=== PATIENT | female | born 1950 | race Caucasian/White ===

== ENCOUNTER 2021-09-12 14:42 | Emergency (ER) | payer MEDICARE, SELFPAY ==
[2021-09-12 15:03] VITALS: BP 120/83; PULSE 64; RESP 14; TEMP 36.6; O2SAT 98
[2021-09-12 15:48] VITALS: BP 117/74; PULSE 62; TEMP 36.6; O2SAT 98
--- NOTE | 2021-09-12 16:00 | DI.US_ITS ---
Exam(s) US LOWER EXTREMITY VENOUS LT EXAM: US LOWER EXTREMITY VENOUS LT CLINICAL HISTORY: pain groin. TECHNIQUE: Ultrasound performed using standard protocol. COMPARISON: No exams were available for comparison FINDINGS: Duplex venous ultrasound was performed according to the usual protocol. The deep veins are freely com pressible throughout and there is normal flow augmentation with manual calf compression. 2D and Doppl er evaluation are unremarkable. IMPRESSION: No evidence of deep venous thrombosis of the left lower extremity. DATA REPOSITORY:
--- NOTE | 2021-09-12 16:32 | ED.GENADUL_ITS ---
Discharge Plan Disposition Patient Disposition: HOME Condition: Stable Discharge Details Clinical Impression: Left inguinal pain Primary Care Provider: Catrina Almodovar ED Provider: Prem Watson Home Meds and New Rx's Prescriptions: Continued calcium carbonate-vitamin D3 600 mg-10 mcg (400 unit) capsule 3 cap PO Rx Instructions: 1200 units once daily. loratadine [Claritin] 10 mg tablet 10 mg PO DAILY warfarin 7.5 mg tablet 7.5 mg PO .6d/week MDD 7.5mg Qty: 90 3RF Protocol: Dose Management Condition: Sunday Dose/Route: 7.5 mg Instruction: 1 x 7.5 mg tablet Condition: Sunday Dose/Route: 7.5 mg Instruction: 1 x 7.5 mg tablet Condition: Sunday Dose/Route: 7.5 mg Instruction: 1 x 7.5 mg tablet Condition: Sunday Dose/Route: 7.5 mg Instruction: 1 x 7.5 mg tablet Condition: Dose/Route: 10 mg Instruction: 2 x 5 mg tablets Condition: Sunday Dose/Route: 7.5 mg Instruction: 1 x 7.5 mg tablet Condition: Sunday Dose/Route: 7.5 mg Instruction: 1 x 7.5 mg tablet Protocol Text: Adjustment Start Date: Sunday09/05/21 INR Value: 2.0 INR Date: 09/05/21 Recheck Date: 10/03/21 Additional Instructions: Pt notified. zn Rx Instructions: Or as directed opium tincture 10 mg/mL (morphine) tincture 1 ml PO DAILY MDD 1mL Qty: 30 0RF Rx Instructions: Chronic diarrhea metoprolol succinate 25 mg tablet extended release 24 hr 25 mg PO DAILY Qty: 90 3RF metoprolol succinate 100 mg tablet extended release 24 hr 100 mg PO DAILY Qty: 90 3RF Rx Instructions: To add to 25mg for TDD 125mg daily warfarin 5 mg tablet 10 mg PO .1d/week MDD 5mg daily Protocol: Dose Management Condition: Sunday Dose/Route: 7.5 mg Instruction: 1 x 7.5 mg tablet Condition: Sunday Dose/Route: 7.5 mg Instruction: 1 x 7.5 mg tablet Condition: Sunday Dose/Route: 7.5 mg Instruction: 1 x 7.5 mg tablet Condition: Sunday Dose/Route: 7.5 mg Instruction: 1 x 7.5 mg tablet Condition: Dose/Route: 10 mg Instruction: 2 x 5 mg tablets Condition: Sunday Dose/Route: 7.5 mg Instruction: 1 x 7.5 mg tablet Condition: Sunday Dose/Route: 7.5 mg Instruction: 1 x 7.5 mg tablet Protocol Text: Adjustment Start Date: Sunday09/05/21 INR Value: 2.0 INR Date: 09/05/21 Recheck Date: 10/03/21 Additional Instructions: Pt notified. zn Label Comments: sun/sun Rx Instructions: Or as directed Discharge Instructions Additional Instructions: Please follow-up with your primary care physician. Avoid activities that worsen pain. No heavy lifting or bending and twisting. Return to the emergency department immediately for any worsening or new concerning symptoms. Referrals: Catrina Almodovar NP [Primary Care Provider] - Discharge Data Discharge Date/Time-TO BE ENTERED AT DEPARTURE: 09/12/21 16:41 Medical Decision Making 31-year-old female with history of DVT, on Coumadin, here with left groin pain that started earlier today. Patient is focally tender in her inguinal area with no palpable mass. I am concerned about small inguinal hernia versus less likely DVT versus musculoskeletal etiology. Ultrasound of left lower extremity was negative for DVT. Patient would like to pursue additional diagnostics in the outpatient setting w ith primary care physician. She has no signs of incarcerated hernia and in fact pain is resolved. Disposition decision was made weighing the risks and benefits of hospitalization versus outpatient treatment, the risk for further decompensation, and the patient's wishes. The patient was stable and requested discharge. Prior to discharge, my usual and customary return precautions were reviewed with the patient - this included follow-up instructions and reason to return to the emergency department if condition worsens, does not improve as expected, or other new concerns arise. HPI General Mode of arrival: ambulatory . Date/Time Provider Initiated Documentation: 09/12/21 15:23 . Limitations to Documentation: no limitations . Information obtained by: patient . HPI Narrative: 31-year-old female with history of DVT, on Coumadin, here with left groin pain that started earlier today. Pain has been intermittent since onset. Worse with certain positions including bending over. Pain is been moderate intensity. No associated nausea or vomiting. Patient does have history of pulmonary embolism in the past remotely. She is anticoagulated. She is concerned that she could have a DVT. Related Data Home Medications Medication Instructions Recorded Confirmed loratadine 10 mg tablet (Claritin) 10 mg PO DAILY 11/18/20 09/12/21 calcium carbonate 600 mg-vitamin 3 cap PO 03/23/21 03/23/21 D3 10 mcg (400 unit) capsule warfarin 7.5 mg tablet 7.5 mg PO .6d/week #90 tabs 03/30/21 09/12/21 opium tincture 10 mg/mL (morphine) 1 ml PO DAILY diarrhea #30 mL 07/13/21 09/12/21 oral metoprolol succinate 100 mg 100 mg PO DAILY #90 tabs 08/08/21 09/12/21 tablet,extended release 24 hr metoprolol succinate 25 mg 25 mg PO DAILY #90 tabs 08/08/21 09/12/21 tablet,extended release 24 hr warfarin 5 mg tablet 10 mg PO .1d/week 09/12/21 09/12/21 Previous Rx's Medication Instructions Recorded warfarin 7.5 mg tablet 7.5 mg PO .6d/week #90 tabs 03/30/21 opium tincture 10 mg/mL (morphine) 1 ml PO DAILY diarrhea #30 mL 07/13/21 oral metoprolol succinate 100 mg 100 mg PO DAILY #90 tabs 08/08/21 tablet,extended release 24 hr metoprolol succinate 25 mg 25 mg PO DAILY #90 tabs 08/08/21 tablet,extended release 24 hr Allergies Allergy/AdvReac Type Severity Reaction Status Date / Time 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 Cardiac arrest (~2012) Headache (~2019) 1-2 times per year; [facility] [place] consult, resolved 2020 Heparin allergy Ischemic bowel disease (~2012) S/P ileostomy Seasonal allergies Shoulder pain (~2012) Surgical History H/O shoulder surgery (10/21/12) [facility]- Dr. Betancourt H/O vascular surgery mesh in vena cava History of arthroscopy of left shoulder History of excision of pilonidal cyst History of hemicolectomy (~2012) [facility] [place]. Willard History of reversal of ileostomy (~2013) Hx of breast biopsy (2011) Hx of cholecystectomy (~2004) [facility] Hx of colectomy (2003) Hx of colonoscopy Family History Father Cancer prostate Mother Diabetes Brother SVT (supraventricular tachycardia) Maternal Grandfather Cancer stomach Maternal Grandmother Cancer lung Social History Smoking/Tobacco Use Status: Former Tobacco Use Quit Date: 02/08/97 Tobacco: How many years used: 30 Quit status: quit date established (02/08/1997) Smoking risk assessment performed?: Yes Alcohol Intake: current Alcohol Intake frequency: a few times a month Drug use: Never Substance use type: does not use Adopted: No Caregiver/Support person: No Foster care: No Household members: spouse and other Details: 87 yr old mother lives across driveway Housing: house Number of Children: 0 number of grandchildren: 0 Communication Needs: Hard of Hearing and Corrective Lenses Education Level: college Details: Associate's Degree Do you need help understanding health information?: Never current occupation: Retired pharmacy general manager Pets and animals: Yes (6) Pets and animals: dog(s) Sexually active: No Do you think of yourself as: straight/heterosexual Current gender identity: female What is your relationship status?: How often do you talk on the phone with friends or family?: three or more times per week How often do you get together with friends or relatives?: three or more times per week Do you belong to any clubs or organized social groups?: yes Panel score (0-1 are the most socially isolated patients): 3 What type of physical activity do you participate in: aerobic Duration: 15-30 minutes/day Frequency: daily Irina/Confucianism: Uatsdin Special irina needs: No Seatbelt use: always Drive intox or ride w/intox parts driver: No Do you feel safe at home: Yes Do you feel safe in your relationship?: Yes Exam Const General: cooperative and no acute distress HENMT Mouth: moist mucous membranes Eyes Conjunctivae: normal conjunctivae Neck Neck: trachea midline Resp Auscultation: clear to auscultation bilaterally, no rales, no rhonchi and no wheezes Cardio Rate: regular rate and not tachycardic Rhythm: regular rhythm GI Palpation: soft, not firm, no guarding, no masses and not rigid Auscultation: normal bowel sounds Other: Mild focal tenderness left groin, no mass with bearing down Skin General skin exam: no rashes or lesions noted Neuro General: patient alert, patient awake, patient oriented x3 and tone normal Extrem General: no calf tenderness and no edema Psych Appearance: grossly normal Mental Status: mental status grossly normal Course Vital Signs Vital signs: Vital Signs Temperature 36.6 C 09/12/21 15:03 Pulse 64 09/12/21 15:03 Respiratory Rate 14 09/12/21 15:03 Blood Pressure 120/83 09/12/21 15:03 Pulse Oximetry 98 09/12/21 15:03 Temperature 36.6 C 09/12/21 15:48 Temperature Source Oral 09/12/21 15:48 Pulse 62 09/12/21 15:48 Respiratory Rate 14 09/12/21 15:03 Respiratory Effort Non-Labored 09/12/21 14:56 Respiratory Depth Normal 09/12/21 14:56 Respiratory Pattern Normal 09/12/21 14:56 Blood Pressure 117/74 09/12/21 15:48 Pulse Oximetry 98 09/12/21 15:48 Oxygen Delivery Method Room Air 09/12/21 15:48 Oxygen Flow Rate 0 09/12/21 15:48 PAWSS Have you Been Recently Intoxicated or Drunk Within the Last 30 days?: No Have you Ever Experienced Previous Episodes of Alcohol Withdrawal?: No Have you ever Experienced Withdrawal Seizures?: No Have you ever Experienced Delirium Tremens(DT)s?: No Have you ever undergone Alcohol Rehabilitation Treatment (i.e, inpt ot outpatient treatment programs)?: No Have you ever Experienced Blackouts?: No Have you ever Combined Alcohol with other Downers within the last 90 days?: No Have you ever Combined Alcohol with any other Substance of Abuse during the last 90 days?: No Positive Blood Alcohol level on Presentation? [PCS.BAL]: No Evidence of Increased Autonomic Activity (i.e. HR>120, tremor, sweating, agitation, nausea)?: No Result: 0
== END 2021-09-12 16:41 | disposition home or self-care (01) ==
PROVIDERS: Emergency Provider Student in an Organized Health Care Education/Training Program; PCP Nurse Practitioner Adult Health
DX: R10.32 Left lower quadrant pain (principal)
CPT/HCPCS: 99284; 93971; 99283

== ENCOUNTER 2021-11-07 02:48 | Outpatient (CLI) | payer MEDICARE, SELFPAY ==
[2021-11-07 08:15] LABS: ALT 23 U/L (14-59); AST 22 U/L (15-37); Albumin 3.9 g/dL (3.4-5.0); Alkaline Phosphatase 49 U/L (46-116); Anion Gap 9.1 mmol/L (3-11); BUN 29 mg/dL (7-18); Bilirubin, Total 0.8 mg/dL (0.2-1.0); CO2 27.9 mmol/L (21.0-32.0); CREATININE 1.5 mg/dL (0.55-1.02); Calcium 9.1 mg/dL (8.5-10.1); Calculated LDL 71 mg/dL (<100); Chloride 103 mmol/L (98-107); Cholesterol 147 mg/dL (<200); Estimated GFR 37.03 (mL/min/1.73m2); Glucose 92 mg/dL (74-106); HDL Cholesterol 62 mg/dL (40-60); Potassium 4.3 mmol/L (3.5-5.1); Sodium 140 mmol/L (136-145); TSH (W/Ref FT4) 2.81 uIU/mL (0.36-3.74); Total Protein 7.3 g/dL (6.4-8.2); Triglyceride 71 mg/dL (<150)
== END 2021-11-07 02:49 | disposition home or self-care (01) ==
LOC: LBO 02:48
PROVIDERS: PCP Nurse Practitioner Adult Health; Visit Provider Nurse Practitioner Adult Health
DX: I47.1 Supraventricular tachycardia (principal); K52.9 Noninfective gastroenteritis and colitis, unspecified; R79.89 Other specified abnormal findings of blood chemistry; N18.4 Chronic kidney disease, stage 4 (severe); R51.9 Headache, unspecified; Z79.899 Other long term (current) drug therapy; R53.83 Other fatigue
CPT/HCPCS: 36415; 80053; 80061; 84443

== ENCOUNTER 2021-12-30 11:48 | Outpatient (CLI) | payer MEDICARE, SELFPAY ==
--- NOTE | 2021-12-30 11:45 | RT.EKG_ITS ---
APPROVED REPORT Exam: Resting ECG Reason for Exam: palpitations Patient Location: O HR:64 bpm ECG Measurements Heart Rate 64 AXIS NE 157 P 55 QRSd 95 QRS -40 QT 416 T 48 QTc 430 Conclusion Sinus rhythm...normal P axis, V-rate 50- 99 Left anterior fascicular block...axis(240,-40), init forces inf Atrial premature beat
== END 2021-12-30 11:49 | disposition home or self-care (01) ==
LOC: DI.KIM 11:49
PROVIDERS: PCP Nurse Practitioner Adult Health; Visit Provider Nurse Practitioner Adult Health
DX: R00.2 Palpitations (principal); R94.31 Abnormal electrocardiogram [ECG] [EKG]; I44.4 Left anterior fascicular block; I49.1 Atrial premature depolarization
CPT/HCPCS: 93010

== ENCOUNTER 2021-12-30 13:26 | Outpatient (RCR) | payer MEDICARE, SELFPAY ==
--- NOTE | 2021-12-30 13:15 | HOLTER_ITS ---
APPROVED REPORT Conclusion This is a 48-hour Holter monitor reportedly ordered for SVT and palpitations Rhythm throughout was sinus with an average heart rate of 70. Minimum was 57, maximum 105 There were rare ventricular ectopic beats There were occasional atrial premature beats There was no atrial fibrillation, no supraventricular tachycardia, no high-grade AV block, no pauses greater than 3 seconds
== END 2022-01-11 23:59 | disposition home or self-care (01) ==
LOC: CARDOPNVT 13:26
PROVIDERS: PCP Nurse Practitioner Adult Health; Visit Provider Nurse Practitioner Adult Health
DX: R00.2 Palpitations (principal)
CPT/HCPCS: 93227; 93225; 93226

== ENCOUNTER 2022-01-12 14:09 | Outpatient (RCR) | payer MEDICARE, SELFPAY | END 2022-02-11 23:59 | disposition home or self-care (01) | LOC: CARDOPNVT 14:09 | PROVIDERS: PCP Nurse Practitioner Adult Health; Visit Provider Nurse Practitioner Adult Health | CPT/HCPCS: 93226 ==

== ENCOUNTER → 2022-04-18 13:20 | Outpatient (BNVA) | payer MEDICARE, SELFPAY | PROVIDERS: PCP Nurse Practitioner Adult Health; Referring Provider Nurse Practitioner Adult Health; Visit Provider Surgery | DX: D22.22 Melanocytic nevi of left ear and external auricular canal (principal); L85.8 Other specified epidermal thickening | CPT/HCPCS: 11440; 99242 ==

== ENCOUNTER 2022-04-18 14:22 | Outpatient (REF) | payer MEDICARE, SELFPAY ==
--- NOTE | 2022-04-18 14:20 | SKI_PTH ---
PATIENT: Renae Gibson LOC: [facility] U#:[id number] AGE/SX: 72/F ROOM: RE04/18/[address]: Mari Ornelas : 1950 BED: DIS: 04/18/2022 SPEC #: [id number] RECD: 04/18/22 17:01 STATUS: JEREMY RERoman #: [id number] BHARAT: 04/18/22 14:[address]: Mari Ornelas DEPT: Surgical Specimen RECD BY: Nena Galeas ENTERED: 04/18/22 17:01 SP TYPE: QUINTON MERIDA DR: Catrina Almodovar APRN Tissues: 1 - SKIN BIOPSY(SHAVE/PUNCH) Procedures: SKIN LEVEL 4 Comments: [id number]
== END 2022-04-18 14:23 | disposition home or self-care (01) ==
LOC: LBN 14:22
PROVIDERS: PCP Nurse Practitioner Adult Health; Visit Provider Surgery
DX: L98.8 Other specified disorders of the skin and subcutaneous tissue (principal)
CPT/HCPCS: 88305

== ENCOUNTER 2022-04-19 01:38 | Outpatient (CLI) | payer MEDICARE, SELFPAY ==
--- NOTE | 2022-04-19 06:30 | DI.MAMMO_ITS ---
Exam(s) MAMMO SCREENING EXAM: MAMMO SCREENING CLINICAL HISTORY: screening,z12.39 TECHNIQUE: Mammograms were interpreted according to the usual protocol including computer analysis w [employer] CAD system, tomosynthesis and C-view imaging. COMPARISON: 2013 through 2021 FINDINGS: The breasts are composed of heterogeneously dense fibroglandular densities, Breast Density category C . No suspicious masses or suspicious microcalcifications are seen. No skin thickening or abnormal axillary lymph nodes are seen. There has been no significant change from prior exams. IMPRESSION: BI-RADS Category 1, Negative mammogram. Yearly screening mammography is recommended. Breast Density Category C, heterogeneously Dense. The mammogram demonstrates the patient's breast tissue is dense. Dense breast tissue is very common a nd is not abnormal but dense breast tissue can make it harder to find cancer on a mammogram. Also, de nse breast tissue may increase breast cancer risk. This information about the result of the mammogram report was provided to the patient to raise their awareness. Use this report when you speak with the patient about their risks for breast cancer, which includes their family history. At that time, you may recommend additional screening tests (Ultrasound or MRI) as they might be useful based on their r isk. A negative radiographic report should not delay biopsy if a dominant or clinically suspicious mass is present. Up to ten percent of cancers are not identified on mammography. A negative report may reinforce clinical impression. Adenosis and dense breasts may obscure an underlying neoplasm. False positive reports average 6 to 10%.
== END 2022-04-19 01:58 ==
LOC: DI 01:39
PROVIDERS: PCP Nurse Practitioner Adult Health; Visit Provider Nurse Practitioner Adult Health
DX: Z12.31 Encounter for screening mammogram for malignant neoplasm of breast (principal)
CPT/HCPCS: 77063; 77067

== ENCOUNTER → 2022-04-25 11:37 | Outpatient (BNVA) | payer MEDICARE, SELFPAY | PROVIDERS: PCP Nurse Practitioner Adult Health; Referring Provider Nurse Practitioner Adult Health; Visit Provider Surgery | DX: Z48.817 Encounter for surgical aftercare following surgery on the skin and subcutaneous tissue (principal); L85.8 Other specified epidermal thickening ==

== ENCOUNTER 2022-11-10 03:29 | Outpatient (CLI) | payer MEDICARE, SELFPAY ==
[2022-11-10 14:09] LABS: BUN 25 mg/dL (7-18); CREATININE 1.5 mg/dL (0.55-1.02); Calcium 9.3 mg/dL (8.5-10.1); Chloride 103 mmol/L (98-107); Glucose 115 mg/dL (74-106); Potassium 3.7 mmol/L (3.5-5.1); Sodium 139 mmol/L (136-145)
== END 2022-11-10 03:30 | disposition home or self-care (01) ==
LOC: LBO 03:29
PROVIDERS: Absent Provider Nurse Practitioner Adult Health; PCP Nurse Practitioner Adult Health; Visit Provider Nurse Practitioner Adult Health
DX: R73.09 Other abnormal glucose (principal); R79.89 Other specified abnormal findings of blood chemistry
CPT/HCPCS: 36415; 80048

== ENCOUNTER → 2023-04-23 00:33 | Outpatient (CLI) | payer MEDICARE, SELFPAY ==
--- NOTE | 2023-04-23 08:28 | DI.MAMMO_ITS ---
Exam(s) MAMMO SCREENING EXAM: MAMMO SCREENING CLINICAL HISTORY: screening,Z12.39 TECHNIQUE: Bilateral full field digital CC and MLO mammographic images were obtained with 3D tomosyn thesis and utilizing computer aided detection (CAD). COMPARISON: Available for comparison. FINDINGS: Masses/Architectural Distortion: There is a stable ovoid nodule in the outer right breast on the cran iocaudad view. No new nodules are seen. No areas of architectural distortion are present. Microcalcifications: No suspicious pleomorphic-type are seen. Skin Thickening/Nipple Retraction: None. IMPRESSION: 1. No significant interval change with no specific features of malignancy noted. 2. Unless there is more urgent need, screening mammography is recommended, as per [place] [employer] guidelines. BI-RADS Category 2 - Benign Findings Breast Density - Category C - Heterogeneously dense Breast density category C or D implies that the patient has dense breast tissue. Dense breast tissue is very common and is not abnormal but dense breast tissue can make it harder to find cancer on a ma mmogram. Also, dense breast tissue may increase their breast cancer risk. This information about the result of the mammogram report was provided to the patient to raise their awareness. Use this report when you speak with the patient about their risks for breast cancer, which includes their family hist ory. At that time, you may recommend for more screening tests (Ultrasound or MRI) as they might be us eful based on their risk. A negative radiographic report should not delay biopsy if a dominant or clinically suspicious mass is present. Up to ten percent of cancers are not identified on mammography. A negative report may reinforce clinical impression. Adenosis and dense breasts may obscure an underlying neoplasm. False positive reports average 6 to 10%. Patient will receive a letter notifying them of these results.
== END ==
PROVIDERS: PCP Nurse Practitioner Adult Health; Visit Provider Nurse Practitioner Adult Health
DX: Z12.31 Encounter for screening mammogram for malignant neoplasm of breast (principal)
CPT/HCPCS: 77063; 77067

== ENCOUNTER → 2023-05-02 01:10 | Outpatient (CLI) | payer MEDICARE, SELFPAY ==
--- NOTE | 2023-05-02 07:30 | DI.US_ITS ---
APPROVED REPORT EXAM: Comprehensive 2D, Doppler, and color-flow Echocardiogram Patient Location: Out-Patient Material Control Specialist: Fanta Davila RDCS (AE) Indications: Assess valves, h/o valvular regurgitation, SVT Other Information Study Quality: Good Conclusion Normal left ventricular wall thickness, chamber size and systolic function. EF is 55 to 60%. Wall m otion is normal Normal right ventricular size and function Both atria are normal in size There is no structural or hemodynamically significant valvular disease Estimated right ventricular systolic pressure is 20 mmHg Wall motion Left Ventricle The left ventricle is normal size. The left ventricular systolic function is normal. The left ventric ular ejection fraction is within the normal range. There is normal left ventricular wall thickness. T here is normal LV segmental wall motion. There is no ventricular septal defect visualized. LVEF is 55 %. Right Ventricle The right ventricle is normal size. The right ventricular systolic function is normal. Atria The left atrium size is normal. The right atrium size is normal. The interatrial septum is intact wit h no evidence for an atrial septal defect. Aortic Valve The aortic valve is normal in structure. Aortic valve is probably trileaflet. There is no aortic valv ular stenosis. No aortic regurgitation is present. Mitral Valve The mitral valve is normal in structure. No evidence of mitral valve stenosis. Trace mitral regurgita tion. Tricuspid Valve The tricuspid valve is normal in structure. There is no tricuspid valve stenosis. Trace to mild tricu spid regurgitation. The RVSP is 19.9 mmHg. Pulmonic Valve The pulmonary valve is normal in structure. There is no pulmonic valvular stenosis. There is no pulmo snow valvular regurgitation. Great Vessels The aortic root is normal in size. The ascending aorta is normal in size. Aortic arch is normal in ca liber. IVC is normal in size and collapses >50% with inspiration. Pericardium There is no pericardial effusion. 2D Dimensions IVSD d PLAX 0.89 cm F: 0.6-1.0 Ao Root d 3.33 cm F: 2.7 - 3.3 LVPW d PLAX 0.94 cm F: 0.6 - 1.0 Ao Asc Diam d 3.08 cm F: 2.3 - 3.1 LVID d PLAX 4.49 cm F: 3.8 - 5.2 LVDs 3.14 cm F: 2.2 - 3.5 LV EF Teichholz 57.4 % FS 30.06 % LV EDV (Teich) 92.0 mL LV ESV (Teich) 39.1 mL M-Mode TAPSE 2.08 cm (M/F) >1.7 Auto EF LV EDV A4C 63.0 mL LV EDV A2C 77.7 mL LV EDV BP 70.5 mL LV ESV A4C 28.6 mL LV ESV A2C 34.4 mL LV ESV BP 31.5 mL LVEF(%) A4C 54.7 % LVEF(%) A2C 55.7 % LVEF(%) BP 55.2 % LV SV A4C 34.5 ml LV SV A2C 43.3 ml LV SV BP 38.9 ml LV CO A4C 2.4 L/min LV CO A2C 3.2 L/min LV CO BP 2.8 L/min HR A4C 68.31 BPM HR A2C 73.62 BPM LV EDV Index (BP) LA Volume LA Length A4C 4.1 cm LA Length A2C 4.7 cm LA Area A4C s 11.67 cm2 LA Area A2C s 14.52 cm2 LA Vol A4C A-L 28.51 mL LA Vol A2C A-L 38.33 mL LA Vol Biplane A-L 35.5 mL LA Vol/BSA A4C A-L LA Vol/BSA A2C A-L LA Vol/BSA BP A-L 20.7 mL/m2 LA Vol A4C MOD 26.4 mL LA Vol A2C MOD 34.6 mL LA Vol BP MOD 32.2 mL RA Volume RA Area A4C 8.0 cm2 RA ESV A4C (A-L) 15.4mL RA Vol/BSA A4C A-L RA Length A4C 3.5 cm RA ESV A4C (MOD) 14.6mL LV Diastology MV E' medial 0.054 (>0.07 m/s) MV E Vmax 0.46 (0.4-1.3 m/s) MV E/E' MED 8.40 (<14) MV A Vmax 0.85 (0.4-1.3 m/s) MV E' lateral 0.051 (>0.1 m/s) E/A Ratio 0.5 MV E/E' LAT 8.99 (<14) MV E' Average 0.053 m/s MV E/E'(average) 8.69 Aortic Valve AoV Vmax 0.99 m/s LVOT Vmax 0.98 m/s AoV Peak Grad 3.9 mmHg LVOT Peak Grad 3.9 mmHg AoV Area (Vmax) 2.80 cm2 LVOT VTI 0.172 m AoV VTI 0.194 m LVOT Mean Grad 1.8 mmHg AoV Mean Conrad. 0.71 m/s LVOT SV 48.51 mL AoV Mean Grad 2.3 mmHg LVOT Diam s 1.85 cm AoV Area (VTI) 2.50 cm2 Velocity Ratio 0.99 Mitral Valve MV DT 213 (160-240 msec) Pulmonary Valve PV Vmax 0.68 (0.5-1.5 m/s) RVOT Vmax 0.56 m/s PV Peak Grad 1.9 mmHg RVOT Peak Gr. 1.3 mmHg PV Mean Conrad 0.46 m/s RVOT VTI 0.124 m PV Mean Grad 1.0 mmHg RVOT Mean Gr. 0.5 mmHg Tricuspid Valve RA Pressure 3.00 mmHg TR Vmax 2.06 m/s TV S' 0.12 m/s TR Peak Grad 16.9 mmHg RVSP (TR) 19.9 mmHg
== END ==
PROVIDERS: PCP Nurse Practitioner Adult Health; Visit Provider Nurse Practitioner Adult Health
DX: I47.10 Supraventricular tachycardia, unspecified (principal)
CPT/HCPCS: 93306

== ENCOUNTER 2024-02-27 03:16 | Outpatient (CLI) | payer MEDICARE, SELFPAY ==
[2024-02-27 07:34] LABS: Anion Gap 7.7 mmol/L (3-11); BUN 20 mg/dL (7-18); CO2 27.3 mmol/L (21.0-32.0); CREATININE 1.3 mg/dL (0.55-1.02); Calcium 9.3 mg/dL (8.5-10.1); Calculated LDL 61 mg/dL (<100); Chloride 106 mmol/L (98-107); Cholesterol 131 mg/dL (<200); Estimated GFR 43.15 (mL/min/1.73m2); Glucose 106 mg/dL (74-106); HDL Cholesterol 52 mg/dL (40-60); Potassium 4.5 mmol/L (3.5-5.1); Sodium 141 mmol/L (136-145); Triglyceride 94 mg/dL (<150)
== END 2024-02-27 03:17 | disposition home or self-care (01) ==
LOC: LBO 03:16
PROVIDERS: PCP Nurse Practitioner Adult Health; Referring Provider Nurse Practitioner Adult Health; Visit Provider Nurse Practitioner Adult Health
DX: N18.9 Chronic kidney disease, unspecified (principal); Z79.01 Long term (current) use of anticoagulants; Z51.81 Encounter for therapeutic drug level monitoring; Z13.6 Encounter for screening for cardiovascular disorders; Z13.1 Encounter for screening for diabetes mellitus
CPT/HCPCS: 36415; 80048; 80061